=== PATIENT | male | born 1980 | race Caucasian/White ===

== ENCOUNTER 2025-02-16 15:05 | Inpatient (IN) | payer SELFPAY ==
--- NOTE | ~2025-02-16 | CT_ITS ---
EXAMINATION: CTA UE RT DATE: 02/17/2025 16:39 CDT INDICATION: Contaminated injury of the right elbow. Surgical washout is planned in 12-14 hours. TECHNIQUE: Computed tomographic angiography (CTA) of the right upper extremity was performed with 100 mL Omnipaque-350 intravenous contrast. The dose-length product was 1625.82 mGy-cm. At the time of th is dictation, no separate maximum intensity projection 3D-reconstructions of the upper extremity holli shabnam were constructed by the technologist on a separate workstation. COMPARISON: None. FINDINGS/OBSERVATIONS: No filling defect is identified within the arteries or veins of the upper extremities. Significant so ft tissue swelling and induration along the soft tissues of the right upper extremity, originating wi thin the posterior compartment at the level of the right shoulder, and involving the entirety of the soft tissues surrounding the musculature at the level of the elbow to the wrist. The CT acquisition windows performed as a CTA (as requested) precludes adequate evaluation of the adj acent musculature secondary to streak artifact from the hyper attenuating bone. IMPRESSION: No discrete filling defect within the arteries or veins of the upper extremities. Significant soft tissue swelling and induration of the right upper extremity, originating within the posterior dimension at the level of the right shoulder and involving the entirety of the soft tissues surrounding the musculature of the level of the elbow to the wrist. Reviewed, dictated and finalized at location A. IMPRESSION: No discrete filling defect within the arteries or veins of the upper extremitie s. Significant soft tissue swelling and induration of the right upper extremity, o riginating within the posterior dimension at the level of the right shoulder an d involving the entirety of the soft tissues surrounding the musculature of the level of the elbow to the wrist.
--- NOTE | ~2025-02-16 | XR_ITS ---
EXAMINATION: XR humerus RT, XR forearm RT 2V, XR elbow RT min 3V DATE: 02/16/2025 15:41 INDICATION: Right upper limb injury with swelling TECHNIQUE: 1. AP and lateral views of the right humerus were obtained. 2. Anteroposterior, two oblique and lateral views of the right elbow were obtained. 3. AP and lateral views of the right forearm were obtained. COMPARISON: None. FINDINGS: Bone alignment is normal from the right shoulder through the wrist and visualized hand. No fracture. No cortical erosions or periosteal reaction. Polyarticular osteoarthritis, minimal at the right acrom ioclavicular and elbow joints and mild at the triscaphe and first carpal metacarpal joints. Small ole cranon spur. There is prominent soft tissue swelling and subcutaneous edema posterior to the elbow an d proximal forearm. IMPRESSION: 1. Mild degenerative skeletal changes in the right shoulder, elbow and carpus. No acute osseous abnor mality. Reviewed, dictated and finalized at location A. IMPRESSION: 1. Mild degenerative skeletal changes in the right shoulder, elbow and carpus. No acute osseous abnormality. IMPRESSION: 1. Mild degenerative skeletal changes in the right shoulder, elbow and carpus. No acute osseous abnormality.
[2025-02-16 15:08] VITALS: BP 166/113; PULSE 103; RESP 20; TEMP 37; O2SAT 98
--- NOTE | 2025-02-16 19:20 | ED.UPPEXIN ---
HPI - Extremity Injury (Upper) General Chief Complaint: Extremity Injury, Upper <Funmilayo Kunz PA-C - Last Filed: 02/16/25 23:06> Stated Complaint: R. elbow. and R. forearm injury <DONNA Nugent Last Filed: 02/16/25 23:06> Time Seen by Provider: 02/16/25 18:51 <DONNA Nugent Last Filed: 02/16/25 23:06> Source: patient <DONNA Nugent Last Filed: 02/16/25 23:06> Mode of arrival: ambulatory <DONNA Nugent Last Filed: 02/16/25 23:06> Limitations: no limitations <DONNA Nugent Last Filed: 02/16/25 23:06> History of Present Illness HPI narrative: This is a 44-year-old male that presents to the emergency department for right elbow pain. Reports he fell off the back of the [employer] 3 days ago. Landed on his right elbow. He then tripped and fell last night and once again landed on his right forearm. Reports redness, swelling, pain to the elbow. Reports decreased range of motion. Denies fevers. <DONNA Nugent Last Filed: 02/16/25 23:06> Related Data Home Medications: Home Medications ?Medication ?Instructions ?Recorded ?Confirmed ?Last Taken ?Type No Home Medications 02/16/25 02/16/25 Unknown History <DONNA Nugent Last Filed: 02/16/25 23:06> Allergies/Adverse Reactions: Allergies Allergy/AdvReac Type Severity Reaction Status Date / Time No Known Allergies Allergy Verified 02/16/25 23:26 <DONNA Nugent Last Filed: 02/16/25 23:06> Review of Systems Review of Systems: All systems reviewed & are unremarkable except as noted in HPI and below <DONNA Nugent Last Filed: 02/16/25 23:06> [facility] Past Medical History Medical History: Medical History (Updated 02/16/25 @ 22:56 by Funmilayo Kunz PA-C) No active medical problems <Funmilayo Kunz PA-C - Last Filed: 02/16/25 23:06> Social History Social History: Social History (Updated 02/16/25 @ 19:26 by Funmilayo Kunz PA-C) Smoking status: Never smoker Alcohol intake: current Drinks per week: 18 Substance use: current Substance use type: marijuana Last use: 02/15/25 Lack of Transportation: No Lack of Food: Never True Current Housing: I Have Housing Concerned About Future Housing: No Difficulty Paying Gas/Electric Bills: No Difficulty Paying for Meds: No Currently Unemployed: No Education: Grade School Difficulty w/ Childcare or Family Care: No Spiritual care concerns: No <Funmilayo Kunz PA-C - Last Filed: 02/16/25 23:06> Exam Narrative: GENERAL: Well-appearing, well-nourished, and in no acute distress. HEAD: Normocephalic, atraumatic. EYES: EOMI. CHEST: No respiratory distress. HEART: Regular rate EXTREMITIES: Mildly decreased active ROM in the right elbow. Edema and fluctuance to the olecranon bursa. Purulent drainage can be expressed from the posterior elbow at the bursa. Edema and redness extends into the upper arm and forearm. Normal radial pulse. Normal sensation SKIN: Warm, dry, no rash. NEURO: No focal deficits. Alert and oriented x3. PSYCH: Normal mood and affect <Funmilayo Kunz PA-C - Last Filed: 02/16/25 23:06> Course Course Emergency Course: Patient updated on his workup and need for admission <Funmilayo Kunz PA-C - Last Filed: 02/16/25 23:06> LEASING SPECIALIST/PA Physician Supervision This visit was performed by both a physician and an APC. I performed all aspects of the MDM as documented. <Vinay Saez MD - Last Filed: 02/17/25 06:06> Consultations Consultation #1: Spoke with Dr. Bautista about patient and workup. Patient will be made NPO at midnight <Funmilayo Kunz PA-C - Last Filed: 02/16/25 23:06> Date: 02/16/25 <Funmilayo Kunz PA-C - Last Filed: 02/16/25 23:06> Consultation #2: Spoke with hospitalist about patient and workup who accepts admission <Funmilayo Kunz PA-C - Last Filed: 02/16/25 23:06> Date: 02/16/25 <Funmilayo Kunz PA-C - Last Filed: 02/16/25 23:06> Vital Signs Vital signs: Vital Signs Temperature 37.0 C 02/16/25 15:08 Pulse Rate 103 H 02/16/25 15:08 Respiratory Rate 20 02/16/25 15:08 Blood Pressure 166/113 H 02/16/25 15:08 Pulse Oximetry 98 02/16/25 15:08 Oxygen Delivery Room Air 02/16/25 15:08 Temperature 36.6 C 02/16/25 20:11 Pulse Rate 88 02/16/25 20:11 Respiratory Rate 18 02/16/25 20:11 Blood Pressure 131/81 02/16/25 20:11 Pulse Oximetry 96 02/16/25 20:11 Oxygen Delivery Room Air 02/16/25 15:08 <Funmilayo Kunz PA-C - Last Filed: 02/16/25 23:06> Vital Signs Temperature 37.0 C 02/16/25 15:08 Pulse Rate 103 H 02/16/25 15:08 Respiratory Rate 20 02/16/25 15:08 Blood Pressure 166/113 H 02/16/25 15:08 Pulse Oximetry 98 02/16/25 15:08 Oxygen Delivery Room Air 02/16/25 15:08 Temperature 36.6 C 02/16/25 20:11 Pulse Rate 88 02/16/25 20:11 Respiratory Rate 18 02/16/25 20:11 Blood Pressure 131/81 02/16/25 20:11 Pulse Oximetry 96 02/16/25 20:11 Oxygen Delivery Room Air 02/16/25 15:08 <Vinay Saez MD - Last Filed: 02/17/25 06:06> MDM - Extremity Injury (Upper) MDM Narrative Medical decision making narrative: Patient presents to the emergency department after a fall 3 days ago with right elbow swelling and pain. Patient is afebrile and nontoxic appearing. Mildly tachycardic upon arrival, this normalized with IV fluids. CBC with leukocytosis to 17.1. ESR is not elevated. CRP 4.5. Elbow, forearm, humerus x-ray show degenerative changes. No acute osseous abnormalities. Patient does have a fluctuant olecranon bursa that is actively draining purulence drainage. This was sent for culture. Blood cultures obtained, patient started on IV antibiotics. Will be admitted for further management. Spoke with orthopedics. Patient will be made NPO at midnight <Funmilayo Kunz PA-C - Last Filed: 02/16/25 23:06> Differential Diagnosis Differential diagnosis: Likely other (septic bursitis, septic joint) <Funmilayo Kunz PA-C - Last Filed: 02/16/25 23:06> Lab Data Attestation: I reviewed the patient's lab results. <Funmilayo Kunz PA-C - Last Filed: 02/16/25 23:06> Result diagrams: 02/16/25 19:25 02/16/25 19:25 <Funmilayo Kunz PA-C - Last Filed: 02/16/25 23:06> Labs: Lab Results 02/16/25 Range/Units 19:25 WBC 17.1 H (4.5-10.0) K/mm3 RBC 4.63 (4.6-6.20) M/mm3 Hgb 15.5 (14.0-18.0) g/dL Hct 44.8 (42.0-52.0) % MCV 96.8 (80-100) fl MCH 33.5 (26-34) pg MCHC 34.6 (32-36) g/dl RDW 11.9 (11.5-14.5) % Plt Count 158 (150-375) k/mm3 MPV 10.6 H (7.4-10.4) fl Immature Gran % (Auto) 0.5 (0-0.5) % Neut % (Auto) 82.2 H (45.5-73.1) % Lymph % (Auto) 5.8 L (18.3-44.2) % [place] % (Auto) 11.3 H (2.6-8.5) % Eos % (Auto) 0.0 (0-4.4) % Baso % (Auto) 0.2 (0.2-1.2) % Lymph # (Auto) 1.00 (0.9-3.2) K/mm3 [place] # (Auto) 1.9 H (0.1-0.6) K/mm3 Eos # (Auto) 0.0 (0-0.3) K/mm3 Baso # (Auto) 0.0 (0.0-0.1) K/mm3 Abs Immat Gran (auto) 0.09 H (0.00-0.031) K/mm3 Absolute Neuts (auto) 14.1 H (1.3-6.7) K/mm3 Absolute Nucleated RBC 0.000 (0.0-0.012) K/mm3 Nucleated RBC % 0.0 (0.0-0.2) % ESR 7 (0-20) mm/hr PT 13.8 (11.1-14.7) Seconds INR 1.0 APTT 25.8 (22.3-36.8) Seconds Sodium 131 L (137-145) mmol/L Potassium 3.6 (3.4-5.0) mmol/L Chloride 96 L (98-107) mmol/L Carbon Dioxide 24 (22-30) mmol/L Anion Gap 11 (4-12) mmol/L BUN 12 (9-20) mg/dL Creatinine 0.86 (0.7-1.3) mg/dL Estim Creat Clear Calc 104 ml/min Estimated GFR > 60 (59 - ) Glucose 122 H (65-110) mg/dL Uric Acid 5.9 (3.5-8.5) mg/dL Calcium 9.6 (8.4-10.2) mg/dL Total Bilirubin 2.2 H (0.2-1.3) mg/dL AST 46 (17-59) U/L ALT 49 (6-50) U/L Alkaline Phosphatase 80 (38-126) U/L C-Reactive Protein 4.5 H (<1.0) mg/dL Total Protein 8.3 H (6.3-8.2) g/dL Albumin 4.8 (3.5-5.1) g/dL <Funmilayo Kunz PA-C - Last Filed: 02/16/25 23:06> Lab Results 02/16/25 Range/Units 19:25 WBC 17.1 H (4.5-10.0) K/mm3 RBC 4.63 (4.6-6.20) M/mm3 Hgb 15.5 (14.0-18.0) g/dL Hct 44.8 (42.0-52.0) % MCV 96.8 (80-100) fl MCH 33.5 (26-34) pg MCHC 34.6 (32-36) g/dl RDW 11.9 (11.5-14.5) % Plt Count 158 (150-375) k/mm3 MPV 10.6 H (7.4-10.4) fl Immature Gran % (Auto) 0.5 (0-0.5) % Neut % (Auto) 82.2 H (45.5-73.1) % Lymph % (Auto) 5.8 L (18.3-44.2) % [place] % (Auto) 11.3 H (2.6-8.5) % Eos % (Auto) 0.0 (0-4.4) % Baso % (Auto) 0.2 (0.2-1.2) % Lymph # (Auto) 1.00 (0.9-3.2) K/mm3 [place] # (Auto) 1.9 H (0.1-0.6) K/mm3 Eos # (Auto) 0.0 (0-0.3) K/mm3 Baso # (Auto) 0.0 (0.0-0.1) K/mm3 Abs Immat Gran (auto) 0.09 H (0.00-0.031) K/mm3 Absolute Neuts (auto) 14.1 H (1.3-6.7) K/mm3 Absolute Nucleated RBC 0.000 (0.0-0.012) K/mm3 Nucleated RBC % 0.0 (0.0-0.2) % ESR 7 (0-20) mm/hr PT 13.8 (11.1-14.7) Seconds INR 1.0 APTT 25.8 (22.3-36.8) Seconds Sodium 131 L (137-145) mmol/L Potassium 3.6 (3.4-5.0) mmol/L Chloride 96 L (98-107) mmol/L Carbon Dioxide 24 (22-30) mmol/L Anion Gap 11 (4-12) mmol/L BUN 12 (9-20) mg/dL Creatinine 0.86 (0.7-1.3) mg/dL Estim Creat Clear Calc 104 ml/min Estimated GFR > 60 (59 - ) Glucose 122 H (65-110) mg/dL Uric Acid 5.9 (3.5-8.5) mg/dL Calcium 9.6 (8.4-10.2) mg/dL Total Bilirubin 2.2 H (0.2-1.3) mg/dL AST 46 (17-59) U/L ALT 49 (6-50) U/L Alkaline Phosphatase 80 (38-126) U/L C-Reactive Protein 4.5 H (<1.0) mg/dL Total Protein 8.3 H (6.3-8.2) g/dL Albumin 4.8 (3.5-5.1) g/dL <Vinay Saez MD - Last Filed: 02/17/25 06:06> Imaging Data Radiologist's impression: ITS Impressions Elbow X-Ray 02/16/25 15:41 IMPRESSION: 1. Mild degenerative skeletal changes in the right shoulder, elbow and carpus. No acute osseous abnormality. Forearm X-Ray 02/16/25 15:41 IMPRESSION: 1. Mild degenerative skeletal changes in the right shoulder, elbow and carpus. No acute osseous abnormality. Humerus X-Ray 02/16/25 15:41 IMPRESSION: 1. Mild degenerative skeletal changes in the right shoulder, elbow and carpus. No acute osseous abnormality. <Funmilayo Kunz PA-C - Last Filed: 02/16/25 23:06> Critical Care Time Critical Care Time Critical Care Time: No <Funmilayo Kunz PA-C - Last Filed: 02/16/25 23:06> Discharge Plan Discharge Clinical Impression: Septic olecranon bursitis of right elbow <Funmilayo Kunz PA-C - Last Filed: 02/16/25 23:06> Patient Disposition: Still a Patient <DONNA Nugent Last Filed: 02/16/25 23:06> Condition: Stable <DONNA Nugent Last Filed: 02/16/25 23:06>
[2025-02-16 19:41] LABS: Hematocrit 44.8 % (42.0-52.0); Hemoglobin 15.5 g/dL (14.0-18.0); Immature Granulocyte Percent A 0.5 % (0-0.5); Lymphocytes Absolute Auto 1.00 K/mm3 (0.9-3.2); Mean Corpuscular HGB Conc 34.6 g/dl (32-36); Mean Corpuscular Hemoglobin 33.5 pg (26-34); Mean Corpuscular Volume 96.8 fl (80-100); Nucleated Red Blood Cells Absolute Auto 0.000 K/mm3 (0.0-0.012); Nucleated Red Blood Cells Perc 0.0 % (0.0-0.2); Platelet Count Result 158 k/mm3 (150-375); Red Blood Count 4.63 M/mm3 (4.6-6.20); White Blood Count 17.1 K/mm3 (4.5-10.0)
[2025-02-16 19:53] LABS: Alanine Aminotransferase 49 U/L (6-50); Albumin Level 4.8 g/dL (3.5-5.1); Alkaline Phosphatase 80 U/L (38-126); Anion Gap 11 mmol/L (4-12); Aspartate Amino Transferase 46 U/L (17-59); Bilirubin,Total 2.2 mg/dL (0.2-1.3); Blood Urea Nitrogen 12 mg/dL (9-20); CRP 4.5 mg/dL (<1.0); Calcium 9.6 mg/dL (8.4-10.2); Carbon Dioxide 24 mmol/L (22-30); Chloride 96 mmol/L (98-107); Estimated CRCL calculation 104 ml/min; Estimated Glomerular Filt Rate > 60; Glucose 122 mg/dL (65-110); Potassium 3.6 mmol/L (3.4-5.0); Sodium 131 mmol/L (137-145); Total Protein 8.3 g/dL (6.3-8.2); Uric Acid 5.9 mg/dL (3.5-8.5)
[2025-02-16 19:57] LABS: INR 1.0; Prothrombin Time 13.8 Seconds (11.1-14.7)
[2025-02-16 19:58] LABS: Partial Thromboplastin Time 25.8 Seconds (22.3-36.8)
[2025-02-16] MEDS: ceFAZolin 1 GM in SODIUM CHLORIDE 0.9% IV 50 ML 100 ML IVPB (20:08)
[2025-02-16] MEDS: SODIUM CHLORIDE 0.9% IV 1,000 ML 999 ML IV CONT (20:08)
[2025-02-16 20:11] VITALS: BP 131/81; PULSE 88; RESP 18; TEMP 36.6; O2SAT 96
[2025-02-16] MEDS: VANCOMYCIN 1,500 MG/NS 500 ML 1,500 MG/500 ML BAG 250 MG IVPB (20:34)
[2025-02-16] MEDS: HYDROcodone/acetaminophen (*CRX) 5-325 MG TABLET 1 TAB PO (21:21)
[2025-02-16] MEDS: SODIUM CHLORIDE 0.9% IV 1,000 ML 125 ML IV CONT (21:25)
[2025-02-16 22:30] VITALS: BMI 31.5
--- NOTE | 2025-02-16 22:48 | ADMGEN ---
This patient, Sal Ruvalcaba, was admitted to [facility] Surg Room 328-01. Patient/family oriented to hospital policies and general routines including ID bracelet, bed and alarms, visiting hours, pain management, procedures, bathroom and other care routines, personal items, smoking policy, room service/diet, and visiting hours. Information on how to activate the Rapid Response Team has been discussed. Patient/Family are encouraged to report perceived risks to care and to ask questions if they do not understand what they are told or what they should do.
--- NOTE | 2025-02-16 23:36 | WNDPHOTO ---
PHOTO ONLY - See Nursing Notes and/ or assessments for documentation.
[2025-02-17] MEDS: IBUPROFEN IV 800 MG/200 ML 800 MG/200 ML BAG 400 MG IVPB ×2 (03:05→23:33)
[2025-02-17] MEDS: ceFAZolin 1 GM in SODIUM CHLORIDE 0.9% IV 50 ML 100 ML IVPB ×3 (04:15→23:00)
[2025-02-17 06:00] VITALS: BP 134/58; PULSE 60; RESP 18; TEMP 36.9; O2SAT 95
[2025-02-17] MEDS: SODIUM CHLORIDE 0.9% IV 1,000 ML 125 ML IV CONT (06:13)
[2025-02-17 07:27] LABS: Estimated CRCL calculation 118 ml/min; Estimated Glomerular Filt Rate > 60
--- NOTE | 2025-02-17 08:14 | PM.IMHP ---
H&P: HPI History of Present Illness Date/Time: 02/17/25 08:14 Chief Complaint: Right elbow pain Narrative: This is a 44-year-old male who presents to the ED for right elbow pain. He reports 3 days ago he fell off the back of the [employer] while moving a dresser and landed on his right elbow. The dresser also fell on him however without any significant injury. He did okay at that time however he tripped and fell again 2 days ago and landed on the right forearm again. He started having increased pain redness and swelling and came to the ER for evaluation. He denies any fever chills. In the ED he was initially hypertensive and mildly tachycardic but afebrile. Laboratory workup revealed WBC of 17 hemoglobin 15 platelet 158 Chem panel showed sodium of 131 potassium 3.6 chloride 96 bicarbonate 24 BUN 12 creatinine 0.8 blood glucose of 122. ESR is not elevated. CRP is 4.5. Elbow forearm humerus x-ray shows degenerative changes. No acute osseous abnormalities. Patient was noted to have fluctuated olecranon bursa that was actively draining purulent drainage which was obtained and sent for culture. Blood cultures were obtained and patient was started on IV antibiotics. Orthopedic has been consulted and he is admitted for further treatment. Review of Systems Review of Systems: - CONSTITUTIONAL: Denies weight loss, fever and chills. - HEENT: Denies changes in vision and hearing - RESPIRATORY: Denies SOB and cough. - CV: Denies palpitations and CP. - GI: Denies abdominal pain, nausea, vomiting and diarrhea. - : Denies dysuria and urinary frequency. - MSK: See HPI - SKIN: Denies rash and pruritus. - NEUROLOGICAL: Denies headache and syncope. - PSYCHIATRIC: Denies recent changes in mood. Denies anxiety and depression. [facility] Past Medical History Medical History (Updated 02/16/25 @ 22:56 by Funmilayo Kunz PA-C) No active medical problems Social History Social History (Updated 02/16/25 @ 19:26 by Funmilayo Kunz PA-C) Smoking status: Never smoker Alcohol intake: current Drinks per week: 18 Substance use: current Substance use type: marijuana Last use: 02/15/25 Lack of Transportation: No Lack of Food: Never True Current Housing: I Have Housing Concerned About Future Housing: No Difficulty Paying Gas/Electric Bills: No Difficulty Paying for Meds: No Currently Unemployed: No Education: Grade School Difficulty w/ Childcare or Family Care: No Spiritual care concerns: No Meds Home Medications and Allergies Home Medications ?Medication ?Instructions ?Recorded ?Confirmed ?Type No Home Medications 02/16/25 02/16/25 History Allergies Allergy/AdvReac Type Severity Reaction Status Date / Time No Known Allergies Allergy Verified 02/16/25 23:26 Vital Signs Vital Signs - 24 hr 02/16/25 15:08 02/16/25 20:11 02/17/25 06:00 Temperature 98.6 F 98 F 98.4 F Pulse Rate 103 H 88 60 Respiratory Rate 20 18 18 Blood Pressure 166/113 H 131/81 134/58 L Pulse Oximetry 98 96 95 Oxygen Delivery Room Air Exam Narrative: GENERAL: Well-appearing, well-nourished, and in no acute distress. HEAD: Normocephalic, atraumatic. EYES: EOMI. CHEST: No respiratory distress. HEART: Regular rate EXTREMITIES: Mildly decreased active ROM in the right elbow. Edema and fluctuance to the olecranon bursa. With open area without much drainage however surrounding area is erythematous warm and tender. SKIN: Warm, dry, no rash. NEURO: No focal deficits. Alert and oriented x3. PSYCH: Normal mood and affect H&P: Results Labs Labs: Short CBC 02/16/25 Range/Units 19:25 WBC 17.1 H (4.5-10.0) K/mm3 Hgb 15.5 (14.0-18.0) g/dL Hct 44.8 (42.0-52.0) % Plt Count 158 (150-375) k/mm3 [facility] 02/16/25 02/17/25 19:25 06:18 Sodium 131 L Potassium 3.6 Chloride 96 L Carbon Dioxide 24 BUN 12 Creatinine 0.86 0.76 Glucose 122 H Calcium 9.6 Liver Function 02/16/25 Range/Units 19:25 Total Bilirubin 2.2 H (0.2-1.3) mg/dL AST 46 (17-59) U/L ALT 49 (6-50) U/L Alkaline Phosphatase 80 (38-126) U/L Albumin 4.8 (3.5-5.1) g/dL Assessment and Plan Assessment and plan (1) Septic olecranon bursitis of right elbow: Code(s): M71.121 - Other infective bursitis, right elbow Status: Acute Plan This is a 44-year-old male who presents to the ED for right elbow pain. He reports 3 days ago he fell off the back of the [employer] while moving a dresser and landed on his right elbow. The dresser also fell on him however without any significant injury. He did okay at that time however he tripped and fell again 2 days ago and landed on the right forearm again. He started having increased pain redness and swelling and came to the ER for evaluation. He denies any fever chills. In the ED he was initially hypertensive and mildly tachycardic but afebrile. Laboratory workup revealed WBC of 17 hemoglobin 15 platelet 158 Chem panel showed sodium of 131 potassium 3.6 chloride 96 bicarbonate 24 BUN 12 creatinine 0.8 blood glucose of 122. ESR is not elevated. CRP is 4.5. Elbow forearm humerus x-ray shows degenerative changes. No acute osseous abnormalities. Patient was noted to have fluctuated olecranon bursa that was actively draining purulent drainage which was obtained and sent for culture. Blood cultures were obtained and patient was started on IV antibiotics. Orthopedic has been consulted and he is admitted for further treatment. Right elbow likely olecranon bursitis with surrounding cellulitis IV Ancef and IV vancomycin was initiated. No risk factors for MRSA. Will check MRSA nares Orthopedic has been consulted for possible drainage May need to rule out underlying septic arthritis however unlikely DVT prophylaxis SCDs Code status is full code
[2025-02-17 08:52] LABS: Hematocrit 39.9 % (42.0-52.0); Hemoglobin 13.6 g/dL (14.0-18.0); Immature Granulocyte Percent A 0.5 % (0-0.5); Lymphocytes Absolute Auto 1.20 K/mm3 (0.9-3.2); Mean Corpuscular HGB Conc 34.1 g/dl (32-36); Mean Corpuscular Hemoglobin 34.3 pg (26-34); Mean Corpuscular Volume 100.5 fl (80-100); Nucleated Red Blood Cells Absolute Auto 0.000 K/mm3 (0.0-0.012); Nucleated Red Blood Cells Perc 0.0 % (0.0-0.2); Platelet Count Result 132 k/mm3 (150-375); Red Blood Count 3.97 M/mm3 (4.6-6.20); White Blood Count 15.2 K/mm3 (4.5-10.0)
[2025-02-17 08:58] LABS: Alanine Aminotransferase 29 U/L (6-50); Albumin Level 3.4 g/dL (3.5-5.1); Alkaline Phosphatase 63 U/L (38-126); Anion Gap 7 mmol/L (4-12); Aspartate Amino Transferase 28 U/L (17-59); Bilirubin,Total 1.3 mg/dL (0.2-1.3); Blood Urea Nitrogen 12 mg/dL (9-20); Calcium 8.3 mg/dL (8.4-10.2); Carbon Dioxide 25 mmol/L (22-30); Chloride 101 mmol/L (98-107); Estimated CRCL calculation 121 ml/min; Estimated Glomerular Filt Rate > 60; Glucose 100 mg/dL (65-110); Magnesium 1.9 mg/dL (1.6-2.3); Potassium 3.4 mmol/L (3.4-5.0); Sodium 133 mmol/L (137-145); Total Protein 5.8 g/dL (6.3-8.2)
[2025-02-17] MEDS: VANCOMYCIN 1,500 MG/NS 500 ML 1,500 MG/500 ML BAG 250 MG IVPB ×2 (09:38→20:22)
[2025-02-17] MEDS: MORPHINE SULFATE (*CRX) 4 MG/ML INJ IV PUSH ×3 (09:38→20:21)
--- NOTE | 2025-02-17 10:07 | PC.NURSE ---
RN called MD Moreira to see if there were plans for patient moving forward and to see if patient could eat or drink. No response.
--- NOTE | 2025-02-17 11:34 | PC.NURSE ---
RN called MD Moreira again with no response. Patient requesting something to eat or drink.
--- NOTE | 2025-02-17 11:40 | PC.NURSE ---
Harish okayed patient to eat.
[2025-02-17 14:00] VITALS: BP 140/95; PULSE 93; RESP 18; TEMP 36.2; O2SAT 97
--- NOTE | 2025-02-17 15:36 | PM.CNOR ---
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 He had a scab at the time [place] was on a farm so he states that there may have been some fecal type matter on the ground but he is not sure. After this he fell again at home and since that time he has had significant swelling redness and pain in the scabbed area he has some purulent drainage. He has been on IV vancomycin already for a few hours and with minimal to no improvement. I would recommend a formal irrigation and debridement of the right elbow olecranon bursa as well as complete olecranon bursectomy. The risks benefits alternatives complications were discussed with the patient including not limited to infection nerve injury, blood vessel injury, additional surgery secondary to persistent infection he agrees to proceed. We will we will make him NPO after midnight and plan for the surgery tomorrow morning. History of Present Illness HPI Consult date: 02/17/25 Chief complaint: Right Elbow Pain and swelling Narrative: This 44-year-old male presents with right elbow pain following two traumatic falls, first landing on his elbow three days ago and then on his forearm two days ago. Septic olecranon bursitis, likely precipitated by trauma, given the fluctuant olecranon bursa with purulent drainage, elevated WBC (17), and elevated CRP (4.5). The patient was admitted and IV antibiotics were initiated. This morning the patient states that he has very little improvement in the redness and the swelling are somewhat extending into the forearm as well as into the arm. [facility] Past Medical History Medical History (Updated 02/16/25 @ 22:56 by Funmilayo Kunz PA-C) No active medical problems Social History Social History (Updated 02/16/25 @ 19:26 by Funmilayo Kunz PA-C) Smoking status: Never smoker Alcohol intake: current Drinks per week: 18 Substance use: current Substance use type: marijuana Last use: 02/15/25 Lack of Transportation: No Lack of Food: Never True Current Housing: I Have Housing Concerned About Future Housing: No Difficulty Paying Gas/Electric Bills: No Difficulty Paying for Meds: No Currently Unemployed: No Education: Grade School Difficulty w/ Childcare or Family Care: No Spiritual care concerns: No Meds Home Medications and Allergies Home Medications ?Medication ?Instructions ?Recorded ?Confirmed ?Type No Home Medications 02/16/25 02/16/25 History Allergies Allergy/AdvReac Type Severity Reaction Status Date / Time No Known Allergies Allergy Verified 02/16/25 23:26 Vital Signs Vital Signs - 24 hr 02/16/25 20:11 02/17/25 06:00 02/17/25 08:00 Temperature 36.6 C 36.9 C Pulse Rate 88 60 Respiratory Rate 18 18 Blood Pressure 131/81 134/58 L Pulse Oximetry 96 95 Oxygen Delivery Room Air 02/17/25 14:00 Temperature 36.2 C L Pulse Rate 93 Respiratory Rate 18 Blood Pressure 140/95 H Pulse Oximetry 97 Oxygen Delivery Exam Narrative: On exam this afternoon, after the administration of IV antibiotics he appears to be minimal to no improvement. He still has significant fluctuance over the olecranon area as well as warmth extending into the arm as well as into the forearm. Patient states that his pain is tolerable he has a good appetite his white blood cell count is decreasing. He does have some limitation on flexion extension secondary to pain in the posterior aspect of his elbow. He can supinate and pronate without difficulty. There is minimal to no pain on passive range of motion of the elbow. He has good radial pulse and good sensation of this extremity. There is a small area where he has a scab over the olecranon that is draining minimal purulent material. Const: General: cooperative, healthy appearing, comfortable, no acute distress, well developed, alert, awake and Physically active Nutritional Appearance: average body habitus Orientation/consciousness: oriented to person, oriented to place and oriented to time Results Labs 02/17/25 06:13 02/17/25 06:18 Labs: Abnormal lab results 02/16/25 02/17/25 Range/Units 19:25 06:13 WBC 17.1 H 15.2 H (4.5-10.0) K/mm3 RBC 3.97 L (4.6-6.20) M/mm3 Hgb 13.6 L (14.0-18.0) g/dL Hct 39.9 L (42.0-52.0) % MCV 100.5 H (80-100) fl MCH 34.3 H (26-34) pg Plt Count 132 L (150-375) k/mm3 MPV 10.6 H 11.2 H (7.4-10.4) fl Neut % (Auto) 82.2 H 81.6 H (45.5-73.1) % Lymph % (Auto) 5.8 L 7.9 L (18.3-44.2) % [place] % (Auto) 11.3 H 9.5 H (2.6-8.5) % [place] # (Auto) 1.9 H 1.5 H (0.1-0.6) K/mm3 Abs Immat Gran (auto) 0.09 H 0.07 H (0.00-0.031) K/mm3 Absolute Neuts (auto) 14.1 H 12.4 H (1.3-6.7) K/mm3 Sodium 131 L 133 L (137-145) mmol/L Chloride 96 L (98-107) mmol/L Glucose 122 H (65-110) mg/dL Calcium 8.3 L (8.4-10.2) mg/dL Total Bilirubin 2.2 H (0.2-1.3) mg/dL C-Reactive Protein 4.5 H (<1.0) mg/dL Total Protein 8.3 H 5.8 L (6.3-8.2) g/dL Albumin 3.4 L (3.5-5.1) g/dL H & H 02/16/25 02/17/25 Range/Units 19:25 06:13 Hgb 15.5 13.6 L (14.0-18.0) g/dL Hct 44.8 39.9 L (42.0-52.0) % Coagulation 02/16/25 Range/Units 19:25 INR 1.0 All other labs normal.
[2025-02-17 22:00] VITALS: BP 149/97; PULSE 84; RESP 16; TEMP 36.7; O2SAT 99
[2025-02-18] VITALS (13 sets, daily range): BP systolic 107–155; BP diastolic 75–103; PULSE 65–94; RESP 12–18; TEMP 36–36.9; O2SAT 95–100
[2025-02-18] MEDS: MORPHINE SULFATE (*CRX) 4 MG/ML INJ IV PUSH ×2 (02:56→13:44)
[2025-02-18] MEDS: ceFAZolin 1 GM in SODIUM CHLORIDE 0.9% IV 50 ML 100 ML IVPB ×3 (05:25→20:51)
--- NOTE | 2025-02-18 07:55 | WPDHPUPDATE1 ---
History and Physical Update Update Date/Time: 02/18/25 07:56 History and Physical has been reviewed, including an updated exam of the patient. There are NO changes in the patient's condition. Risks, benefits, and alternatives have been discussed and questions answered. Patient agrees to proceed with procedure. Right Elbow Olecranon bursectomy with I&D
--- NOTE | 2025-02-18 08:14 | PC.NURSE ---
To pre-op per bed, IV saline locked. Report given to YONATAN Brown.
--- NOTE | 2025-02-18 08:24 | WPDANESEPPF ---
Anes - Initial Pre Proc Eval Procedure: Operation Date: 02/18/25 08:00 Proposed Procedures p Right Elbow Debridement - Fareed Bautista MD Date/Time: 02/18/25 08:24 Surgeon: Sherrell Short DO Pre Op Diagnosis: Right Elbow Pain and swelling Patient Data Age: 44 Gender: M Height: 1.7 m Weight: 91.4 kg Last Vital Signs Temp 98.1 F 02/18/25 06:00 Pulse 72 02/18/25 06:00 Resp 14 02/18/25 06:00 BP 128/90 02/18/25 06:00 Pulse Ox 97 02/18/25 06:00 O2 Del Method Room Air 02/17/25 08:00 Allergies Allergy/AdvReac Type Severity Reaction Status Date / Time No Known Allergies Allergy Verified 02/16/25 23:26 Home Medications ?Medication ?Instructions ?Recorded ?Confirmed ?Type No Home Medications 02/16/25 02/16/25 History Laboratory Tests 02/17/25 06:13 WBC 15.2 H K/mm3 (4.5-10.0) RBC 3.97 L M/mm3 (4.6-6.20) Hgb 13.6 L g/dL (14.0-18.0) Hct 39.9 L % (42.0-52.0) MCV 100.5 H fl (80-100) MCH 34.3 H pg (26-34) MCHC 34.1 g/dl (32-36) RDW 11.9 % (11.5-14.5) Plt Count 132 L k/mm3 (150-375) MPV 11.2 H fl (7.4-10.4) Immature Gran % (Auto) 0.5 % (0-0.5) Neut % (Auto) 81.6 H % (45.5-73.1) Lymph % (Auto) 7.9 L % (18.3-44.2) [place] % (Auto) 9.5 H % (2.6-8.5) Eos % (Auto) 0.2 % (0-4.4) Baso % (Auto) 0.3 % (0.2-1.2) Lymph # (Auto) 1.20 K/mm3 (0.9-3.2) [place] # (Auto) 1.5 H K/mm3 (0.1-0.6) Eos # (Auto) 0.0 K/mm3 (0-0.3) Baso # (Auto) 0.0 K/mm3 (0.0-0.1) Abs Immat Gran (auto) 0.07 H K/mm3 (0.00-0.031) Absolute Neuts (auto) 12.4 H K/mm3 (1.3-6.7) Absolute Nucleated RBC 0.000 K/mm3 (0.0-0.012) Nucleated RBC % 0.0 % (0.0-0.2) Sodium 133 L mmol/L (137-145) Potassium 3.4 mmol/L (3.4-5.0) Chloride 101 mmol/L (98-107) Carbon Dioxide 25 mmol/L (22-30) Anion Gap 7 mmol/L (4-12) BUN 12 mg/dL (9-20) Creatinine 0.74 mg/dL (0.7-1.3) Estim Creat Clear Calc 121 ml/min Estimated GFR > 60 (59 - ) Glucose 100 mg/dL (65-110) Calcium 8.3 L mg/dL (8.4-10.2) Magnesium 1.9 mg/dL (1.6-2.3) Total Bilirubin 1.3 mg/dL (0.2-1.3) AST 28 U/L (17-59) ALT 29 U/L (6-50) Alkaline Phosphatase 63 U/L (38-126) Total Protein 5.8 L g/dL (6.3-8.2) Albumin 3.4 L g/dL (3.5-5.1) Patient hx anesthesia problems: none Family hx anesthesia problems: none Results Review: All pre-operative results and documents have been reviewed as part of the pre-operative evaluation. ON LICENSE OF [facility] Past Medical History Medical History No active medical problems Social History Social History Smoking status: Never smoker Alcohol intake: current Drinks per week: 18 Substance use: current Substance use type: marijuana Last use: 02/15/25 Lack of Transportation: No Lack of Food: Never True Current Housing: I Have Housing Concerned About Future Housing: No Difficulty Paying Gas/Electric Bills: No Difficulty Paying for Meds: No Currently Unemployed: No Education: Grade School Difficulty w/ Childcare or Family Care: No Spiritual care concerns: No Anes - Eval Final PreProcedure Day of Procedure 02/18/25 08:24 Patient weight: obese Lungs: normal air movement Airway: Mallampati scale class II and special considerations (Upper teeth w some chips, none loose. ) poor dentition Neurological: alert and oriented Last oral intake: >/= 8 hours ASA classification: II Emergent: no Anesthetic plan: proceed Anesthesia type and monitoring: general LMA and standard monitoring Results Review: All pre-operative results and documents have been reviewed as part of the pre-operative evaluation. Cannabis user daily, a dime sized portion most days, and pt drinks ETOH 6-12 beers every other day. Active as a sheet metal apprentice, walks to all job sites, no cp or sob. Informed Consent: The patient's anesthetic plan and its attendant risks and benefits were discussed with the patient/family/POA. Questions were solicited and answers provided to the satisfaction of the patient/family/POA.
--- NOTE | 2025-02-18 08:27 | P.PNIM_ITS ---
Progress Note: A&P Assessment and Plan (1) Septic olecranon bursitis of right elbow: Code(s): M71.121 - Other infective bursitis, right elbow Status: Acute Assessment and Plan: * Right elbow likely olecranon bursitis with surrounding cellulitis * IV Ancef and IV vancomycin was initiated. * No risk factors for MRSA. Will check MRSA nares * Ortho consult * Patient has been on IV vancomycin already for a few hours and with minimal to no improvement * Recommends formal irrigation and debridement of the right elbow olecranon bursa as well as complete olecranon bursectomy * Plan for R elbow debridement tentatively @ 0800 today * Continue to monitor daily labs, vital signs and blood cultures for signs of infection * Cefazolin 1g q8hr * PRN morphine 4mg q4hr, ibuprofen 800mg q6hr Plan This is a 44-year-old male who presents to the ED for right elbow pain. He reports 3 days ago he fell off the back of the [employer] while moving a dresser and landed on his right elbow. The dresser also fell on him however without any significant injury. He did okay at that time however he tripped and fell again 2 days ago and landed on the right forearm again. He started having increased pain redness and swelling and came to the ER for evaluation. He denies any fever chills. In the ED he was initially hypertensive and mildly tachycardic but afebrile. Laboratory workup revealed WBC of 17 hemoglobin 15 platelet 158 Chem panel showed sodium of 131 potassium 3.6 chloride 96 bicarbonate 24 BUN 12 creatinine 0.8 blood glucose of 122. ESR is not elevated. CRP is 4.5. Elbow forearm humerus x-ray shows degenerative changes. No acute osseous abnormalities. Patient was noted to have fluctuated olecranon bursa that was actively draining purulent drainage which was obtained and sent for culture. Blood cultures were obtained and patient was started on IV antibiotics. Orthopedic has been consulted and he is admitted for further treatment. Right elbow likely olecranon bursitis with surrounding cellulitis IV Ancef and IV vancomycin was initiated. No risk factors for MRSA. Will check MRSA nares Orthopedic has been consulted for possible drainage May need to rule out underlying septic arthritis however unlikely DVT prophylaxis SCDs Code status is full code Subjective Date/time seen: 02/18/25 08:27 Interval history: 44-year-old male who presents to the ED for right elbow pain. He reports 3 days ago he fell off the back of the [employer] while moving a dresser and landed on his right elbow. The dresser also fell on him however without any significant injury. He did okay at that time however he tripped and fell again 2 days ago and landed on the right forearm again. 02/18/2025 Patient sitting in bed at time of exam. Denies any chest pain, SOB, n/v, or abd pain. Post op 3 hours from Right Elbow Olecranon Bursectomy. Will continue to monitor vitals, blood work and cultures for signs of infection. At this time pt has no complaints besides some mild elbow discomfort. Review of Systems Review of Systems: - CONSTITUTIONAL: Denies weight loss, fe timothy and chills. - HEENT: Denies changes in vision and he aring - RESPIRATORY: Denies SOB and cough. - CV: Denies palpitations and CP. - GI: Denies abdominal pain, nausea, vom iting and diarrhea. - : Denies dysuria and urinary frequen cy. - MSK: See HPI - SKIN: Denies rash and pruritus. - NEUROLOGICAL: Denies headache and sync ope. - PSYCHIATRIC: Denies recent changes in mood. Denies anxiety and depression. Exam Narrative: GENERAL: Well-appearing, well-nourished, and in no acute distress. HEAD: Normocephalic, atraumatic. EYES: EOMI. CHEST: No respiratory distress. HEART: Regular rate EXTREMITIES: Post op Right Elbow Olecranon Bursectomy. Dressing looks clean, dry and intact. Mildly decreased active ROM in the right elbow. SKIN: Warm, dry, no rash. NEURO: No focal deficits. Alert and oriented x3. PSYCH: Normal mood and affect Objective Data Vital Signs Vital Signs: Vital Signs - 24 hr 02/17/25 14:00 02/17/25 22:00 02/18/25 06:00 Temperature 97.1 F L 98.0 F 98.1 F Pulse Rate 93 84 72 Respiratory Rate 18 16 14 Blood Pressure 140/95 H 149/97 H 128/90 Pulse Oximetry 97 99 97 Intake/Output Intake/Output: Intake & Output 02/15/25 02/16/25 02/17/25 02/18/25 23:59 23:59 23:59 23:59 Intake Total 1050 4170 400 Balance 1050 4170 400 Meds/Results Medications: Active Medications Generic Name Dose Route Start Last Admin Trade Name Alexeyq PRN Reason Stop Dose Admin Fentanyl Citrate 25 mcg 02/18/25 08:05 Fentanyl Citrate Inj (*Crx) 100 Mcg/2 Ml Vial IV PUSH Q2M PRN Pain Ibuprofen 800 mg in 200 mls @ 400 mls/hr 02/16/25 21:20 02/17/25 23:33 Caldolor 800 Mg/200 Ml IVPB 400 mls/hr Q6H PRN Administration Pain Rated 4-6 Vancomycin HCl 1,500 mg in 500 mls @ 250 mls/hr 02/17/25 09:00 02/17/25 22:51 Vancomycin 1,500 Mg/Ns 500 Ml IVPB Infused Q12H JEWEL Infusion Cefazolin Sodium 1 gm/ Sodium 50 mls @ 100 mls/hr 02/17/25 05:00 02/18/25 05:25 Chloride IVPB 100 mls/hr Q8HR JEWEL Administration Lactated Ringer's 1,000 mls @ 30 mls/hr 02/18/25 08:05 Lr - Lactated Ringers Iv IV CONT .Q24H JEWEL Lactated Ringer's 1,000 mls @ 30 mls/hr 02/18/25 08:05 Lr - Lactated Ringers Iv IV CONT .Q24H JEWEL Morphine Sulfate 4 mg 02/16/25 21:01 02/18/25 02:56 Morphine Sulfate (*Crx) 4 Mg/Ml Inj IV PUSH 4 mg Q4H PRN Administration Pain Rated 7-10 Ondansetron HCl 4 mg 02/18/25 08:05 Ondansetron Inj 4 Mg/2 Ml Vial IV PUSH ONCE PRN Nausea Oxycodone HCl 5 mg 02/18/25 08:05 Oxycodone Hcl (*Crx) 5 Mg Tab Ir PO ONCE PRN Pain Radiology Results: ITS Impressions Elbow X-Ray 02/16/25 15:41 IMPRESSION: 1. Mild degenerative skeletal changes in the right shoulder, elbow and carpus. No acute osseous abnormality. Forearm X-Ray 02/16/25 15:41 IMPRESSION: 1. Mild degenerative skeletal changes in the right shoulder, elbow and carpus. No acute osseous abnormality. Humerus X-Ray 02/16/25 15:41 IMPRESSION: 1. Mild degenerative skeletal changes in the right shoulder, elbow and carpus. No acute osseous abnormality. Upper Extremity CTA 02/17/25 16:38 IMPRESSION: No discrete filling defect within the arteries or veins of the upper extremities. Significant soft tissue swelling and induration of the right upper extremity, originating within the posterior dimension at the level of the right shoulder and involving the entirety of the soft tissues surrounding the musculature of the level of the elbow to the wrist. Labs Labs: Laboratory Results - last 24 hr 02/17/25 06:13 WBC 15.2 H RBC 3.97 L Hgb 13.6 L Hct 39.9 L MCV 100.5 H MCH 34.3 H MCHC 34.1 RDW 11.9 Plt Count 132 L MPV 11.2 H Immature Gran % (Auto) 0.5 Neut % (Auto) 81.6 H Lymph % (Auto) 7.9 L [place] % (Auto) 9.5 H Eos % (Auto) 0.2 Baso % (Auto) 0.3 Lymph # (Auto) 1.20 [place] # (Auto) 1.5 H Eos # (Auto) 0.0 Baso # (Auto) 0.0 Abs Immat Gran (auto) 0.07 H Absolute Neuts (auto) 12.4 H Absolute Nucleated RBC 0.000 Nucleated RBC % 0.0 Sodium 133 L Potassium 3.4 Chloride 101 Carbon Dioxide 25 Anion Gap 7 BUN 12 Creatinine 0.74 Estim Creat Clear Calc 121 Estimated GFR > 60 Glucose 100 Calcium 8.3 L Magnesium 1.9 Total Bilirubin 1.3 AST 28 ALT 29 Alkaline Phosphatase 63 Total Protein 5.8 L Albumin 3.4 L Quality VTE Prophylaxis VTE prophylaxis: mechanical ordered
[2025-02-18] MEDS: BUPivacaine HCL 0.25% PF 10 ML VIAL INFILTRATE (09:02)
[2025-02-18] MEDS: LACTATED RINGERS 1,000 ML 30 ML IV CONT (09:23)
[2025-02-18] MEDS: LIDO 1%/EPINEPHRINE 1:100,000 20 ML VIAL 10 ML INFILTRATE (09:29)
--- NOTE | 2025-02-18 09:29 | W.PM.PROC2 ---
Procedure Note - Detailed Date of Procedure 02/18/25 Pre-op Diagnosis Right Elbow Septic Olecranon Bursitis Post-op Diagnosis Same Procedure Performed 1. Right Elbow Olecranon Bursectomy 2. Right Long Arm Splint Application Surgeon Fareed Bautista MD Anesthesia General Indications 44-year-old presenting with right elbow pain swelling redness and drainage after falling onto his right elbow. The patient had elevated white blood cell count elevated CRP and extending erythema of his arm and down to his forearm. Failed conservative management with regards to 24 hours of IV antibiotics. Findings Seropurulent drainage from the right elbow olecranon bursa Description of Procedure After obtaining consent with regards to the risks benefits alternatives and complications of the procedure, the right elbow was then marked. He was then brought to the operating room placed in supine position at which time he underwent general anesthesia. Right upper extremity was then prepped and draped in a standard sterile fashion. Tourniquet was not used for the procedure. Examination patient's right elbow he had a small open wound that was draining seropurulent material. There was extensive erythema going up his arm and down into his forearm. I then extended an incision which centered over the area of seropurulent drainage which measured about 1 cm proximal and distal approximately 3 in proximal 3 in distal. The wound was centered over the olecranon. I dissected down and immediately after dissecting into the layer of the olecranon bursa significant seropurulent drainage was obtained. Cultures were obtained at this point. I then dissected down further and the complete olecranon bursectomy using a rongeur as well as sharp dissection in order to do the irrigation and debridement. This was debrided down to the olecranon. A curette was also used in order to remove the bursa. I then irrigated copiously with antibiotic solution or specifically 1 g of Ancef per L of solution. I then obtained hemostasis and then close this very loosely with interrupted nylon suture in a vertical mattress fashion. The right elbow was then dressed in a sterile fashion. I then applied a long-arm splint. This was done with Ortho Glass. The patient was then transferred to the recovery room in stable condition. Estimated Blood Loss 30 Drains No Packing No Pathology Yes Complications No immediate complications Condition Stable Disposition PACU
[2025-02-18] MEDS: VANCOMYCIN 2,000 MG/NS 500 ML 2,000 MG/500 ML BAG 250 MG IVPB ×2 (09:40→18:28)
[2025-02-18] MEDS: IBUPROFEN IV 800 MG/200 ML 800 MG/200 ML BAG 400 MG IVPB ×2 (10:56→17:50)
[2025-02-18 11:36] LABS: Hematocrit 41.1 % (42.0-52.0); Hemoglobin 13.3 g/dL (14.0-18.0); Immature Granulocyte Percent A 1.0 % (0-0.5); Immature Platelet Fraction Pct 6.8 % (0.9-11.2); Lymphocytes Absolute Auto 0.85 K/mm3 (0.9-3.2); Mean Corpuscular HGB Conc 32.4 g/dl (32-36); Mean Corpuscular Hemoglobin 33.6 pg (26-34); Mean Corpuscular Volume 103.8 fl (80-100); Nucleated Red Blood Cells Absolute Auto 0.000 K/mm3 (0.0-0.012); Nucleated Red Blood Cells Perc 0.0 % (0.0-0.2); Platelet Count Result 146 k/mm3 (150-375); Red Blood Count 3.96 M/mm3 (4.6-6.20); White Blood Count 13.4 K/mm3 (4.5-10.0)
[2025-02-18 11:56] LABS: Alanine Aminotransferase 19 U/L (6-50); Albumin Level 3.4 g/dL (3.5-5.1); Alkaline Phosphatase 76 U/L (38-126); Anion Gap 3 mmol/L (4-12); Aspartate Amino Transferase 32 U/L (17-59); Bilirubin,Total 0.9 mg/dL (0.2-1.3); Blood Urea Nitrogen 7 mg/dL (9-20); Calcium 8.5 mg/dL (8.4-10.2); Carbon Dioxide 27 mmol/L (22-30); Chloride 103 mmol/L (98-107); Estimated CRCL calculation 143 ml/min; Estimated Glomerular Filt Rate > 60; Glucose 95 mg/dL (65-110); Magnesium 2.0 mg/dL (1.6-2.3); Potassium 3.5 mmol/L (3.4-5.0); Sodium 133 mmol/L (137-145); Total Protein 6.0 g/dL (6.3-8.2)
[2025-02-18 13:04] LABS: MRSA (PCR) NOT DETECTED (NOT DETECTE)
[2025-02-18] MEDS: ACETAMINOPHEN 325 MG TABLET 650 MG PO (20:21)
[2025-02-18] MEDS: oxyCODONE HCL (*CRX) 5 MG TAB IR PO (20:21)
[2025-02-19] MEDS: VANCOMYCIN 2,000 MG/NS 500 ML 2,000 MG/500 ML BAG 250 MG IVPB ×3 (01:35→17:26)
[2025-02-19] MEDS: oxyCODONE HCL (*CRX) 5 MG TAB IR 10 MG PO ×4 (01:37→22:30)
[2025-02-19] MEDS: ACETAMINOPHEN 325 MG TABLET 650 MG PO ×4 (01:37→22:30)
[2025-02-19 05:34] VITALS: BP 147/101; PULSE 81; RESP 18; TEMP 36.1; O2SAT 100
[2025-02-19] MEDS: ceFAZolin 1 GM in SODIUM CHLORIDE 0.9% IV 50 ML 100 ML IVPB ×3 (06:12→21:05)
--- NOTE | 2025-02-19 07:31 | P.PNIM_ITS ---
Progress Note: A&P Assessment and Plan (1) Septic olecranon bursitis of right elbow: Code(s): M71.121 - Other infective bursitis, right elbow Status: Acute Assessment and Plan: * Right elbow likely olecranon bursitis with surrounding cellulitis * IV Ancef and IV vancomycin was initiated. * No risk factors for MRSA. Will check MRSA nares * Ortho consult * Patient has been on IV vancomycin already for a few hours and with minimal to no improvement * Recommends formal irrigation and debridement of the right elbow olecranon bursa as well as complete olecranon bursectomy * Plan for R elbow debridement tentatively @ 0800 today * Continue to monitor daily labs, vital signs and blood cultures for signs of infection * Cefazolin 1g q8hr * PRN morphine 4mg q4hr, ibuprofen 800mg q6hr * Monitor wound culture for sensitivities * Dr. Bautista requests repeat CRP today and tomorrow Plan This is a 44-year-old male who presents to the ED for right elbow pain. He reports 3 days ago he fell off the back of the [employer] while moving a dresser and landed on his right elbow. The dresser also fell on him however without any significant injury. He did okay at that time however he tripped and fell again 2 days ago and landed on the right forearm again. He started having increased pain redness and swelling and came to the ER for evaluation. He denies any fever chills. In the ED he was initially hypertensive and mildly tachycardic but afebrile. Laboratory workup revealed WBC of 17 hemoglobin 15 platelet 158 Chem panel showed sodium of 131 potassium 3.6 chloride 96 bicarbonate 24 BUN 12 creatinine 0.8 blood glucose of 122. ESR is not elevated. CRP is 4.5. Elbow forearm humerus x-ray shows degenerative changes. No acute osseous abnormalities. Patient was noted to have fluctuated olecranon bursa that was actively draining purulent drainage which was obtained and sent for culture. Blood cultures were obtained and patient was started on IV antibiotics. Orkaren llanes has been consulted and he is admitted for further treatment. Right elbow likely olecranon bursitis with surrounding cellulitis IV Ancef and IV vancomycin was initiated. No risk factors for MRSA. Will check MRSA nares Orthopedic has been consulted for possible drainage May need to rule out underlying septic arthritis however unlikely DVT prophylaxis SCDs Code status is full code Subjective Date/time seen: 02/19/25 07:31 Interval history: 44-year-old male who presents to the ED for right elbow pain. He reports 3 days ago he fell off the back of the [employer] while moving a dresser and landed on his right elbow. The dresser also fell on him however without any significant injury. He did okay at that time however he tripped and fell again 2 days ago and landed on the right forearm again. 02/19/2025 Patient sitting in bed at time of exam. Patient progressing well. Experiencing some expected erythema and warmth to surrounding wound site but pt is afebrile and leukocytosis improving. Wound cultures still pending at this time. Dr. Bautista will be back tomorrow and will check in on patient and we will look to discharge pt at that time if he continues to progress well. As for now he requests a CRP today and tomorrow. Review of Systems Review of Systems: - CONSTITUTIONAL: Denies weight loss, fe timothy and chills. - HEENT: Denies changes in vision and he aring - RESPIRATORY: Denies SOB and cough. - CV: Denies palpitations and CP. - GI: Denies abdominal pain, nausea, vom iting and diarrhea. - : Denies dysuria and urinary frequen cy. - MSK: See HPI - SKIN: Denies rash and pruritus. - NEUROLOGICAL: Denies headache and sync ope. - PSYCHIATRIC: Denies recent changes in mood. Denies anxiety and depression. Exam Narrative: GENERAL: Well-appearing, well-nourished, and in no acute distress. HEAD: Normocephalic, atraumatic. EYES: EOMI. CHEST: No respiratory distress. HEART: Regular rate EXTREMITIES: Post op Right Elbow Olecranon Bursectomy. Dressing looks clean, dry and intact. Mildly decreased active ROM in the right elbow. SKIN: Warm, dry, no rash. NEURO: No focal deficits. Alert and oriented x3. PSYCH: Normal mood and affect Objective Data Vital Signs Vital Signs: Vital Signs - 24 hr 02/18/25 09:23 02/18/25 09:30 02/18/25 09:45 Temperature 97.8 F Pulse Rate 66 65 79 Respiratory Rate 12 13 18 Blood Pressure 107/75 108/76 124/94 H Pulse Oximetry 99 99 95 Oxygen Delivery Simple Face Mask Simple Face Mask Room Air Oxygen Flow Rate 10 10 02/18/25 10:00 02/18/25 10:15 02/18/25 11:50 Temperature 97.8 F Pulse Rate 82 79 85 Respiratory Rate 18 13 18 Blood Pressure 131/90 117/88 155/99 H Pulse Oximetry 95 95 98 Oxygen Delivery Room Air Room Air Oxygen Flow Rate 02/18/25 12:05 02/18/25 12:35 02/18/25 13:35 Temperature 98.1 F 97.9 F 98.4 F Pulse Rate 94 88 75 Respiratory Rate 18 18 18 Blood Pressure 135/101 H 136/86 130/90 Pulse Oximetry 98 97 97 Oxygen Delivery Oxygen Flow Rate 02/18/25 18:12 02/18/25 20:30 02/18/25 21:34 Temperature 98.4 F 96.8 F L Pulse Rate 81 81 79 Respiratory Rate 18 18 18 Blood Pressure 140/103 H 144/99 H Pulse Oximetry 100 100 99 Oxygen Delivery Room Air Oxygen Flow Rate 02/19/25 05:34 Temperature 97 F L Pulse Rate 81 Respiratory Rate 18 Blood Pressure 147/101 H Pulse Oximetry 100 Oxygen Delivery Oxygen Flow Rate Intake/Output Intake/Output: Intake & Output 02/16/25 02/17/25 02/18/25 02/19/25 23:59 23:59 23:59 23:59 Intake Total 1050 4170 3460.0 750 Balance 1050 4170 3460.0 750 Meds/Results Medications: Active Medications Generic Name Dose Route Start Last Admin Trade Name Freq PRN Reason Stop Dose Admin Acetaminophen 650 mg 02/18/25 19:55 02/19/25 01:37 Acetaminophen 325 Mg Tablet PO 650 mg Q6H JEWEL Administration Ibuprofen 800 mg in 200 mls @ 400 mls/hr 02/16/25 21:20 02/18/25 18:20 Caldolor 800 Mg/200 Ml IVPB Infused Q6H PRN Infusion Pain Rated 4-6 Cefazolin Sodium 1 gm/ Sodium 50 mls @ 100 mls/hr 02/17/25 05:00 02/19/25 06:55 Chloride IVPB Infused Q8HR JEWEL Infusion Vancomycin HCl 2,000 mg in 500 mls @ 250 mls/hr 02/18/25 10:00 02/19/25 03:36 Vancomycin 2,000 Mg/Ns 500 Ml IVPB Infused Q8H JEWEL Infusion Morphine Sulfate 4 mg 02/16/25 21:01 02/18/25 13:44 Morphine Sulfate (*Crx) 4 Mg/Ml Inj IV PUSH 4 mg Q4H PRN Administration Pain Rated 7-10 Oxycodone HCl 5 mg 02/18/25 19:55 02/18/25 20:21 Oxycodone Hcl (*Crx) 5 Mg Tab Ir PO 5 mg Q4H PRN Administration Pain Rated 4-6 Oxycodone HCl 10 mg 02/18/25 19:55 02/19/25 01:37 Oxycodone Hcl (*Crx) 5 Mg Tab Ir PO 10 mg Q4H PRN Administration Pain Rated 7-10 Radiology Results: ITS Impressions Elbow X-Ray 02/16/25 15:41 IMPRESSION: 1. Mild degenerative skeletal changes in the right shoulder, elbow and carpus. No acute osseous abnormality. Forearm X-Ray 02/16/25 15:41 IMPRESSION: 1. Mild degenerative skeletal changes in the right shoulder, elbow and carpus. No acute osseous abnormality. Humerus X-Ray 02/16/25 15:41 IMPRESSION: 1. Mild degenerative skeletal changes in the right shoulder, elbow and carpus. No acute osseous abnormality. Upper Extremity CTA 02/17/25 16:38 IMPRESSION: No discrete filling defect within the arteries or veins of the upper extremities. Significant soft tissue swelling and induration of the right upper extremity, originating within the posterior dimension at the level of the right shoulder and involving the entirety of the soft tissues surrounding the musculature of the level of the elbow to the wrist. Labs Labs: Laboratory Results - last 24 hr 02/18/25 02/18/25 02/18/25 08:33 10:56 11:03 WBC 13.4 H RBC 3.96 L Hgb 13.3 L Hct 41.1 L MCV 103.8 H MCH 33.6 MCHC 32.4 RDW 11.8 Plt Count 146 L MPV 10.4 Immature Gran % (Auto) 1.0 H Neut % (Auto) 80.9 H Lymph % (Auto) 6.4 L [place] % (Auto) 11.0 H Eos % (Auto) 0.4 Baso % (Auto) 0.3 Lymph # (Auto) 0.85 L [place] # (Auto) 1.5 H Eos # (Auto) 0.1 Baso # (Auto) 0.0 Abs Immat Gran (auto) 0.13 H Absolute Neuts (auto) 10.8 H Absolute Nucleated RBC 0.000 Nucleated RBC % 0.0 % Immature Plt Fraction 6.8 Sodium 133 L Potassium 3.5 Chloride 103 Carbon Dioxide 27 Anion Gap 3 L BUN 7 L D Creatinine 0.62 L Estim Creat Clear Calc 143 Estimated GFR > 60 Glucose 95 Calcium 8.5 Magnesium 2.0 Total Bilirubin 0.9 AST 32 ALT 19 Alkaline Phosphatase 76 Total Protein 6.0 L Albumin 3.4 L Nasal MRSA (PCR) Not detected Vancomycin Trough 6.1 L Quality VTE Prophylaxis VTE prophylaxis: mechanical ordered
[2025-02-19 09:05] LABS: Hematocrit 37.0 % (42.0-52.0); Hemoglobin 12.4 g/dL (14.0-18.0); Immature Granulocyte Percent A 0.7 % (0-0.5); Lymphocytes Absolute Auto 0.90 K/mm3 (0.9-3.2); Mean Corpuscular HGB Conc 33.5 g/dl (32-36); Mean Corpuscular Hemoglobin 33.2 pg (26-34); Mean Corpuscular Volume 99.2 fl (80-100); Nucleated Red Blood Cells Absolute Auto 0.000 K/mm3 (0.0-0.012); Nucleated Red Blood Cells Perc 0.0 % (0.0-0.2); Platelet Count Result 181 k/mm3 (150-375); Red Blood Count 3.73 M/mm3 (4.6-6.20); White Blood Count 9.9 K/mm3 (4.5-10.0)
[2025-02-19 09:30] LABS: Alanine Aminotransferase 20 U/L (6-50); Albumin Level 3.3 g/dL (3.5-5.1); Alkaline Phosphatase 66 U/L (38-126); Anion Gap 2 mmol/L (4-12); Aspartate Amino Transferase 26 U/L (17-59); Bilirubin,Total 0.5 mg/dL (0.2-1.3); Blood Urea Nitrogen 9 mg/dL (9-20); Calcium 8.7 mg/dL (8.4-10.2); Carbon Dioxide 32 mmol/L (22-30); Chloride 99 mmol/L (98-107); Estimated CRCL calculation 124 ml/min; Estimated Glomerular Filt Rate > 60; Glucose 140 mg/dL (65-110); Potassium 3.5 mmol/L (3.4-5.0); Sodium 133 mmol/L (137-145); Total Protein 6.2 g/dL (6.3-8.2)
[2025-02-19 09:34] VITALS: BP 148/95; PULSE 70; RESP 18; TEMP 36.9; O2SAT 99
[2025-02-19 14:00] VITALS: BP 153/98; PULSE 75; RESP 18; TEMP 36.4; O2SAT 99
[2025-02-19 14:28] LABS: CRP 14.4 mg/dL (<1.0)
[2025-02-19] MEDS: IBUPROFEN IV 800 MG/200 ML 800 MG/200 ML BAG 400 MG IVPB (21:04)
[2025-02-19 22:00] VITALS: BP 154/98; PULSE 63; RESP 18; TEMP 36.6; O2SAT 99
[2025-02-20] MEDS: VANCOMYCIN 2,000 MG/NS 500 ML 2,000 MG/500 ML BAG 250 MG IVPB (02:29)
[2025-02-20] MEDS: oxyCODONE HCL (*CRX) 5 MG TAB IR 10 MG PO ×3 (02:30→12:05)
[2025-02-20] MEDS: IBUPROFEN IV 800 MG/200 ML 800 MG/200 ML BAG 400 MG IVPB (05:22)
[2025-02-20] MEDS: ceFAZolin 1 GM in SODIUM CHLORIDE 0.9% IV 50 ML 100 ML IVPB (05:23)
[2025-02-20 05:37] VITALS: BP 163/92; PULSE 98
[2025-02-20 06:22] LABS: CRP 7.6 mg/dL (<1.0); Estimated CRCL calculation 137 ml/min; Estimated Glomerular Filt Rate > 60
[2025-02-20 07:56] LABS: Hematocrit 37.4 % (42.0-52.0); Hemoglobin 12.6 g/dL (14.0-18.0); Immature Granulocyte Percent A 0.4 % (0-0.5); Lymphocytes Absolute Auto 1.63 K/mm3 (0.9-3.2); Mean Corpuscular HGB Conc 33.7 g/dl (32-36); Mean Corpuscular Hemoglobin 33.3 pg (26-34); Mean Corpuscular Volume 98.9 fl (80-100); Nucleated Red Blood Cells Absolute Auto 0.000 K/mm3 (0.0-0.012); Nucleated Red Blood Cells Perc 0.0 % (0.0-0.2); Platelet Count Result 248 k/mm3 (150-375); Red Blood Count 3.78 M/mm3 (4.6-6.20); White Blood Count 8.0 K/mm3 (4.5-10.0)
[2025-02-20 08:02] LABS: Alanine Aminotransferase 19 U/L (6-50); Albumin Level 3.4 g/dL (3.5-5.1); Alkaline Phosphatase 69 U/L (38-126); Anion Gap 6 mmol/L (4-12); Aspartate Amino Transferase 30 U/L (17-59); Bilirubin,Total 0.5 mg/dL (0.2-1.3); Blood Urea Nitrogen 6 mg/dL (9-20); Calcium 8.8 mg/dL (8.4-10.2); Carbon Dioxide 28 mmol/L (22-30); Chloride 102 mmol/L (98-107); Glucose 99 mg/dL (65-110); Potassium 3.3 mmol/L (3.4-5.0); Sodium 136 mmol/L (137-145); Total Protein 6.3 g/dL (6.3-8.2)
[2025-02-20] MEDS: POTASSIUM CHLORIDE 10 MEQ ER TABLET PO (08:38)
[2025-02-20] MEDS: ACETAMINOPHEN 325 MG TABLET 650 MG PO (08:38)
--- NOTE | 2025-02-20 11:04 | P.DS_ITS ---
DS: Admitting Diagnosis Discharge Date 02/20/2025 Admitting Diagnosis Septic olecranon bursitis of the right elbow DS: Discharge Diagnosis Discharge Diagnosis (1) Septic olecranon bursitis of right elbow: Code(s): M71.121 - Other infective bursitis, right elbow Status: Acute Assessment and Plan: * Right elbow likely olecranon bursitis with surrounding cellulitis * IV Ancef and IV vancomycin was initiated. * No risk factors for MRSA. Will check MRSA nares * Ortho consult * Patient has been on IV vancomycin already for a few hours and with minimal to no improvement * Recommends formal irrigation and debridement of the right elbow olecranon bursa as well as complete olecranon bursectomy * Plan for R elbow debridement tentatively @ 0800 today * Continue to monitor daily labs, vital signs and blood cultures for signs of infection * Cefazolin 1g q8hr * PRN morphine 4mg q4hr, ibuprofen 800mg q6hr * Monitor wound culture for sensitivities * Dr. Bautista requests repeat CRP today and tomorrow DS: Summary Hospital Course Reason for hospitalization: Elbow pain Hospital Course: This is a 44-year-old male who presents to the ED for right elbow pain. He reports 3 days ago he fell off the back of the [place] while moving a dresser and landed on his right elbow. The dresser also fell on him however without any significant injury. He did okay at that time however he tripped and fell again 2 days ago and landed on the right forearm again. He started having increased pain redness and swelling and came to the ER for evaluation. He denies any fever chills. In the ED he was initially hypertensive and mildly tachycardic but afebrile. Laboratory workup revealed WBC of 17 hemoglobin 15 platelet 158 Chem panel showed sodium of 131 potassium 3.6 chloride 96 bicarbonate 24 BUN 12 creatinine 0.8 blood glucose of 122. ESR is not elevated. CRP is 4.5. Elbow forearm humerus x-ray shows degenerative changes. No acute osseous abnormalities. Patient was noted to have fluctuated olecranon bursa that was actively draining purulent drainage which was obtained and sent for culture. Blood cultures were obtained and patient was started on IV antibiotics. Orthopedic has been consulted and he is admitted for further treatment. Orthopedics took patient for right elbow olecranon bursectomy with right long- arm splint application on 02/18. Patient was monitored over the next few days continue to improve clinically. Upon admission, WBC was 17 and 1 and had increased to 8.0 at this time. Blood cultures were obtained and showed no g rowth to date. Wound cultures are still pending at this time. Patient is cleared for discharge from orthopedic standpoint, per Dr. Bautista. Patient can be discharged on a total of 10 day course of linezolid to be completed on 02/28. Spoke with ID pharmacist to confirm appropriate dosing. Patient to follow-up with orthopedics office in 1-2 weeks but otherwise is stable for discharge at this time. Plan for discharge home. Status at Discharge Functional status at discharge: independent ambulation Overall status at discharge: patient is back to baseline Time Spent with Patient Time attestation: Total time spent providing and/or coordinating discharge services: 32 Exam Narrative: GENERAL: Well-appearing, well-nourished, and in no acute distress. HEAD: Normocephalic, atraumatic. EYES: EOMI. CHEST: No respiratory distress. HEART: Regular rate EXTREMITIES: Post op Right Elbow Olecranon Bursectomy. Dressing looks clean, dry and intact. Mildly decreased active ROM in the right elbow. SKIN: Warm, dry, no rash. NEURO: No focal deficits. Alert and oriented x3. PSYCH: Normal mood and affect DS: Data Data Completed and Pending Labs on day of discharge: Labs from last 24 hours 02/20/25 02/19/25 05:31 08:58 WBC 8.0 RBC 3.78 L Hgb 12.6 L Hct 37.4 L MCV 98.9 MCH 33.3 MCHC 33.7 RDW 11.9 Plt Count 248 MPV 10.3 Immature Gran % (Auto) 0.4 Neut % (Auto) 60.0 Lymph % (Auto) 20.5 [place] % (Auto) 16.3 H Eos % (Auto) 2.3 Baso % (Auto) 0.5 Lymph # (Auto) 1.63 [place] # (Auto) 1.3 H Eos # (Auto) 0.2 Baso # (Auto) 0.0 Abs Immat Gran (auto) 0.03 Absolute Neuts (auto) 4.8 Absolute Nucleated RBC 0.000 Nucleated RBC % 0.0 Sodium 136 L Potassium 3.3 L Chloride 102 Carbon Dioxide 28 Anion Gap 6 BUN 6 L Creatinine 0.65 L Estim Creat Clear Calc 137 Estimated GFR > 60 Glucose 99 Calcium 8.8 Total Bilirubin 0.5 AST 30 ALT 19 Alkaline Phosphatase 69 C-Reactive Protein 7.6 H 14.4 H Total Protein 6.3 Albumin 3.4 L Preliminary micro results at discharge 02/16/25 19:25 Blood Culture - Preliminary Blood 02/16/25 19:25 Blood Culture - Preliminary Blood Discharge Plan Discharge Attending physician on discharge: Rasta Burnett Consulting providers: Yovanny Wilson; Fareed Bautista Discharging Clinician: Yovanny Wilson Anticipated Discharge Date/Time: 02/20/25 10:59 Patient Disposition: Home Activity: no straining Diet: heart healthy Discharge Instructions: Discharge disposition: Home Take medications as prescribed. You will be discharged on Linezolid. You will be given 17-600mg tablets. Start taking tonight and take twice daily, once in the morning and once in the evening. Monitor blood pressures Take caution while standing, rising, or moving Change positions slowly taking a break between each position change If you standing feel dizzy sit back down and take a break Remain active, full weight-bearing status Follow-up with primary care provider within 1 weeks Follow-up with Dr. Bautista with Orthopedics in 2 weeks. Thank you for choosing [facility] for your healthcare needs Patient Instructions: Antibiotic Form Patient Language: Persian Stand Alone Forms: General Discharge Information Follow-up/Referrals: PHYSICIAN,[facility] [Primary Care Provider] - Fareed Bautista MD [Physician] - Discharge Medications: New linezolid 600 mg tablet 600 mg PO Q12H Qty: 17 0RF Date of admission: 02/17/25 08:51 Primary Care Provider: PHYSICIAN,[facility] Admitting Provider: Sherrell Short Attending physician on admission: Sherrell Short Condition: Stable Quality VTE Prophylaxis VTE prophylaxis: mechanical ordered
[2025-02-20] MEDS: LINEZOLID 600 MG TABLET PO (12:02)
== END 2025-02-20 14:13 | disposition home or self-care (01) | DRG 315 ==
LOC: ANHED 20:19 → ANH3MEDSUR 22:07
PROVIDERS: Internal Medicine; Orthopaedic Surgery; Admitting Provider Internal Medicine; Emergency Provider Physician Assistant; Visit Provider Physician Assistant
PROC: 0MT30ZZ Resection of Right Elbow Bursa and Ligament, Open Approach (ICD-10-PCS; CPT 24110; principal; 2025-02-18 08:00)
DX: M71.121 Other infective bursitis, right elbow (principal); L03.113 Cellulitis of right upper limb; W01.0XXA Fall on same level from slipping, tripping and stumbling without subsequent striking against object, initial encounter; W17.89XA Other fall from one level to another, initial encounter
CPT/HCPCS: 36415; 73060; 73080; 73090; 73206; 80053; 80202; 82565; 83735; 84550; 85025; 85055; 85610; 85652; 85730; 86140; 87040; 87070; 87075; 87205; 87641; 96365; 96366; 96367; 96375; 99285; A4565; A9270; G0378; J0690; J1171; J1741; J2003; J2004; J2250; J2270; J2405; J2704; J3010; J3373; J7030; J7120; Q9967